=== PATIENT | male | born 1965 | race American Indian/Alaskan Native ===

== ENCOUNTER 2017-01-16 12:42 | Day surgery (SDC) | payer BC ==
[2017-01-16] MEDS ORDERED: NACL 0.9% 1000 ML 1,000 ML ONE (13:30)
--- NOTE | 2017-01-16 13:50 | Anesthesia Consultation ---
Anesthesia Consult and Med Hx Date of service: 01/16/17 - Airway Anesthetic Teeth Evaluation: Good ROM Head & Neck: Adequate Mental/Hyoid Distance: Adequate Mallampati Class: Class I Intubation Access Assessment: Good - Pulmonary Exam CTA: Yes - Cardiac Exam Cardiac Exam: RRR - Pre-Operative Health Status ASA Pre-Surgery Classification: ASA2 Proposed Anesthetic Plan: General - Pulmonary Hx Smoking: No Hx Sleep Apnea: Yes - Cardiovascular System Hx Hypertension: Yes (FOR 5 YRS) - Central Nervous System Hx Psychiatric Problems: No - Other Systems Hx Cancer: No
--- NOTE | 2017-01-16 13:51 | Anesthesia Day of Surgery ---
Anesthesia Day of Surgery - Day of Surgery Patient Examined: Yes Patient H&P Reviewed: Yes Patient is NPO: Yes
[2017-01-16] MEDS ORDERED: MARCAINE 0.5% INFILTRATI ONE ×2 (13:56→14:55)
[2017-01-16] MEDS ORDERED: XYLOCAINE 1%/ EPI 1:100,000 INFILTRATI ONE (13:56)
[2017-01-16] MEDS ORDERED: DIPRIVAN 10 MG/ML IV ONE (13:56)
[2017-01-16] MEDS ORDERED: SUBLIMAZE ONE (13:57)
[2017-01-16] MEDS ORDERED: XYLOCAINE MPF 2% ONE (13:57)
[2017-01-16] MEDS ORDERED: ZOFRAN ONE (13:59)
[2017-01-16] MEDS ORDERED: DECADRON ONE (13:59)
[2017-01-16] MEDS ORDERED: CLEOCIN 600 MG/50 mL 600 MG/50 ML BAG IV NR (14:00)
[2017-01-16] MEDS ORDERED: NACL 0.9% 1000 ML 1,000 ML IV SCH (14:00)
[2017-01-16] MEDS ORDERED: ZOFRAN IV PRN (14:54)
[2017-01-16] MEDS: DILAUDID IV PRN ×4 (15:15→15:58)
[2017-01-16] MEDS ORDERED: VERSED ONE (15:24)
[2017-01-16] MEDS ORDERED: VERSED IV ONE (15:28)
[2017-01-16] MEDS ORDERED: TORADOL ONE (15:48)
--- NOTE | 2017-01-16 16:11 | Post Anesthesia Evaluation ---
- Post Anesthesia Evaluation Patient Participated: Yes Airway Patent: Yes Stable Respiratory Function: Yes Nausea/Vomiting: No Temp > 96.8F: Yes Pain Manageable: Yes Adequeate Hydration: Yes Anesthesia Complications: No Block Receding Appropriately: Not Applicable Patient on Ventilator: No
[2017-01-16] MEDS ORDERED: TYLENOL #3 PO ONE (16:59)
[2017-01-16] MEDS ORDERED: TORADOL IV ONE (17:00)
[2017-01-16 18:43] VITALS: BP 140/80
--- NOTE | 2017-01-17 00:50 | Discharge Summary ---
FINAL DIAGNOSIS: Mass, right chest wall. POSTOPERATIVE DIAGNOSIS: Thick lipoma. This man came to my office last week because of mass that he developed about 4 months ago. It is becoming larger with time and it is giving him some discomfort, but no pain, so he was wondering whether this needs to be removed and true enough. He was brought to the hospital today. PHYSICAL EXAMINATION: GENERAL: A well-preserved, short-statured black male who is in no distress. HEAD AND NECK: Negative. CHEST: Essentially clear to me. There is a mass that is about a good 5 x 5 x 3 cm located just medial superior to the right breast area, it is nontender. ABDOMEN: Soft otherwise. EXTREMITIES: Good pulsation in the lower extremities. HOSPITAL COURSE: He was brought as an outpatient where he underwent this removal of the mass, right chest wall area, and he was discharged home the same day to be seen in my office in about 10 days. I talked to his . We gave him [place] for pain. To call me if he has any problem, otherwise he may take the bandage off in about 2-3 days. Going back to work not before 7-10 days from today. JOB# [id number] DAVID/RUDY
--- NOTE | 2017-01-25 13:33 | Operative Report ---
PREOPERATIVE DIAGNOSIS: Mass, right breast. POSTOPERATIVE DIAGNOSIS: Mass, right breast. Pending final pathology report. The pathology came as a mature lipoma. INDICATIONS OF PROCEDURE: This patient was seen in the office 1 week prior to his admission. He came because of feeling a lump in the right breast area. It is giving him some discomfort, but no pain and no evidence of any inflammatory signs. Examination showed a well-preserved man who was noticed that he had dermatoid mass that may be thickened breast tissue. To me it is good to see biopsies ____. So, he was taken to the operating room on 01/16/2017. PREOPERATIVE DIAGNOSES: Mass, right breast. POSTOPERATIVE DIAGNOSIS: Mass, right breast. ANESTHESIA: General. BLOOD LOSS: Minimal. FINDINGS: The patient had a thickened tissue on the breast on the right side. PROCEDURE: The patient in supine position, after he was prepped and draped in usual fashion, I made an incision over the mass. It is a small medial, so deep subcutaneous tissue. I was able to remove a thickened tissue in that area. He had good hemostasis using electrocautery. Then, the wound was closed in layers. I used 3-0 Vicryl for the deep tissue and 4-0 for the intra-articular aspect and a bandage. The patient was then transferred to the recovery room in good condition. JOB# [id number] DAVID/RUDY
== END 2017-01-16 17:40 | disposition home or self-care (01) ==
LOC: OR 12:42
PROVIDERS: ATTEND Surgery
DX: N63 Unspecified lump in breast (principal); I10 Essential (primary) hypertension
CPT/HCPCS: 19120; 36415; 84132; 88304; J1100; J1170; J1885; J2250; J2405; J2704; J3010; J7030; 88307

== ENCOUNTER 2017-12-06 08:31 | Emergency (ER) | payer BC ==
[2017-12-06 09:21] VITALS: BP 144/96
[2017-12-06] MEDS ORDERED: FLEXERIL PO ONE (10:34)
[2017-12-06] MEDS ORDERED: TORADOL IM ONE (10:35)
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
[2017-12-06] MEDS ORDERED: NORCO 5/325 PO ONE (11:56)
== END 2017-12-06 12:17 | disposition home or self-care (01) ==
LOC: ED 08:31
DX: M25.511 Pain in right shoulder (principal); I10 Essential (primary) hypertension; K21.9 Gastro-esophageal reflux disease without esophagitis; E78.00 Pure hypercholesterolemia, unspecified; Z90.49 Acquired absence of other specified parts of digestive tract; Z88.0 Allergy status to penicillin; Z88.8 Allergy status to other drugs, medicaments and biological substances; Z96.621 Presence of right artificial elbow joint; V87.7XXA Person injured in collision between other specified motor vehicles (traffic), initial encounter; Y93.89 Activity, other specified; Y92.89 Other specified places as the place of occurrence of the external cause; Y99.8 Other external cause status
CPT/HCPCS: 72125; 73030; 96372; 99284; J1885